=== PATIENT | female | born 1950 | race Caucasian/White ===

== ENCOUNTER → 2018-03-31 | Day surgery (SDC) | payer MEDICARE ==
[2018-03-31 11:37] VITALS: RESP 16; BMI 37.3
[2018-03-31 13:27] VITALS: BP 123/77; PULSE 51; TEMP 98.1
--- NOTE | 2018-03-31 15:35 | MM ---
EXAMINATION TYPE: MG stereo VAD BX LT DATE OF EXAM: 03/31/2018 COMPARISON: Mammogram 02/18/2018, 03/12/2018 from outside institution CLINICAL HISTORY: Abnormal mammogram TECHNIQUE: Stereotactic guided core biopsy of left breast. FINDINGS: The procedure of stereotactic guided core biopsy was explained to the patient. Benefits, alternatives, and risks were discussed. An informed consent was then obtained. Skin overlying a suitable path to the lesion was localized using stereotactic diabetes and the overlying skin was prepped and draped, lidocaine used for local anesthesia. A vacuum assisted biopsy gun was used to obtain multiple core samples. Clip was deployed marking the area of previously identified calcifications. Calcifications are noted in the specimen radiograph. The patient tolerated the procedure well without any immediate complication. The patient was kept in the radiology department for short stay after the procedure and then discharged home in stable condition. Targeted calcifications are identified in specimen mammogram. Post biopsy mammogram shows the clip to appear in satisfactory position relative to the targeted area of concern on the preprocedure images. IMPRESSION: SUCCESSFUL, UNCOMPLICATED STEREOTACTIC GUIDED CORE BIOPSY OF AREA OF CONCERN IN THE left BREAST, FULL PATHOLOGY RESULTS TO FOLLOW. 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 BACKGROUND FIBROCYSTIC CHANGES INCLUDING CYSTS AND FIBROSIS. Recommendation Follow up mammogram of the left breast in 6 months. CARROLL
== END ==
LOC: RADMAMWWP 11:24
PROVIDERS: ATTEND Family Medicine
DX: D24.2 Benign neoplasm of left breast (principal); N62 Hypertrophy of breast; R92.0 Mammographic microcalcification found on diagnostic imaging of breast; N60.32 Fibrosclerosis of left breast; N60.12 Diffuse cystic mastopathy of left breast; R92.8 Other abnormal and inconclusive findings on diagnostic imaging of breast
CPT/HCPCS: 88305; 19081; A4648; J2001

== ENCOUNTER → 2018-10-20 | Outpatient (CLI) | payer MEDICARE ==
--- NOTE | 2018-10-20 10:19 | MM ---
Reason for exam: additional evaluation requested from prior study. Last mammogram was performed 8 years and 3 months ago. History: Patient is postmenopausal. Benign MG stereo VAD BX LT of the left breast, March 31, 2018. Physical Findings: Nurse did not find any significant physical abnormalities on exam. MG 3D Diag Mammo W/Cad LT CC and MLO view(s) were taken of the left breast. Prior study comparison: March 31, 2018, mammogram, performed at [facility]. February 18, 2018, mammogram, performed at [facility]. September 20, 2016, mammogram, performed at [facility]. August 02, 2010, bilateral digital screening mammogram. The breast tissue is heterogeneously dense. This may lower the sensitivity of mammography. There are benign appearing scattered left breast calcifications. No suspicious abnormality. Left biopsy marker upper inner quadrant. These results were verbally communicated with the patient and result sheet given to the patient on 10/20/18. ASSESSMENT: Benign, BI-RAD 2 RECOMMENDATION: Routine screening mammogram of both breasts in 6 months. Back on schedule.
== END ==
LOC: RADMAMWWP 08:02
PROVIDERS: ATTEND Family Medicine
DX: D48.62 Neoplasm of uncertain behavior of left breast (principal); R92.2 Inconclusive mammogram
CPT/HCPCS: 77065; G0279; 77061

== ENCOUNTER 2019-07-16 19:18 | Observation (INO) | payer MEDICARE ==
[2019-07-16] MEDS ORDERED: Magnesium Replacement Protocol 1 EACH MISC MISCELLANE PRN (19:44)
[2019-07-16] MEDS ORDERED: MAGNESIUM SULFATE-D5W PMX 1 GM in DEXTROSE/WATER 1 100ML.BAG IVPB SCH (20:00)
--- NOTE | 2019-07-16 20:45 | ED ---
General Adult HPI - General Source: patient Mode of arrival: ambulatory Limitations: no limitations <Ashley Hurd - Last Filed: 07/16/19 22:01> <Axel Richardson - Last Filed: 07/16/19 22:15> - General Chief complaint: Chest Pain Stated complaint: chest pain, CHF, Time Seen by Provider: 07/16/19 19:26 - History of Present Illness Initial comments: 69-year-old female patient presents to the emergency department today as a transfer from [facility] for further evaluation of chest pain and palpitations. Patient states that over the last several weeks she has been having episodes of palpitations. States they've been increasing in frequency over the last week or 2. Patient states today she is having palpitations and with them she experienced chest tightness, throat pressure, and pressure over her left upper arm. Patient states she would become dizzy as well. States she did have an episode yesterday where she nearly passed out. Patient was in to see her physician who performed labs and then was sent to the emergency department [facility]. Patient states she does see Dr. Tran for cardiology. She denies any nausea, vomiting, abdominal pain, fever, or chills. Denies any cough or congestion. States that she does drink 3-4 cups of coffee per day. States she did stop drinking caffeine however that did not improve her symptoms so she started again. Denies any leg swelling or pain. Denies any recent travel. Patient denies any recent rash, diarrhea, constipation, back pain, numbness, tingling, hematuria, dysuria, urinary urgency, urinary frequency, or any other complaints. (Ashley Hurd) - Related Data Home Medications Medication Instructions Recorded Confirmed Aspirin [Adult Low Dose Aspirin EC] 81 mg PO DAILY 03/26/18 07/16/19 Cholecalciferol [Vitamin D3] 5,000 unit PO DAILY 03/26/18 07/16/19 Levothyroxine Sodium [Synthroid] 150 mcg PO DAILY 03/26/18 07/16/19 Metoprolol Tartrate [Lopressor] 25 mg PO BID 03/26/18 07/16/19 amLODIPine [Norvasc] 10 mg PO BID 03/26/18 07/16/19 metFORMIN HCL [Glucophage] 500 mg PO BID 03/26/18 07/16/19 Fluticasone Nasal [place] [Flonase 1 spray EA NOSTRIL DAILY PRN 07/16/19 07/16/19 Nasal [place]] Multivitamin [Multivitamins Adult 1 tab PO DAILY 07/16/19 07/16/19 Gummies] Allergies Allergy/AdvReac Type Severity Reaction Status Date / Time No Known Allergies Allergy Verified 07/16/19 22:06 Review of Systems ROS Other: All systems not noted in ROS Statement are negative. <Ashley Hurd - Last Filed: 07/16/19 22:01> ROS Other: All systems not noted in ROS Statement are negative. <Axel Richardson - Last Filed: 07/16/19 22:15> ROS Statement: Those systems with pertinent positive or pertinent negative responses have been documented in the HPI. Past Medical History Past Medical History: Diabetes Mellitus, Hypertension, Thyroid Disorder History of Any Multi-Drug Resistant Organisms: None Reported Past Surgical History: Cholecystectomy, Hysterectomy, Orthopedic Surgery Additional Past Surgical History / Comment(s): bilateral knee arthroscopy, right shoulder surgery Past Anesthesia/Blood Transfusion Reactions: Postoperative Nausea & Vomiting (PONV) Past Psychological History: No Psychological Hx Reported Smoking Status: Never smoker Past Alcohol Use History: Occasional Past Drug Use History: None Reported <Ashley Hurd - Last Filed: 07/16/19 22:01> General Exam Limitations: no limitations General appearance: alert, in no apparent distress, other (This is a well- developed, well-nourished elderly female patient in no acute distress. Vital signs upon presentation are temperature 98.1F, pulse 67, respirations 18, blood pressure 158/81, pulse ox 99% on room air.) Eye exam: Present: normal appearance, PERRL, EOMI. Absent: scleral icterus, conjunctival injection, periorbital swelling ENT exam: Present: normal exam, normal oropharynx, mucous membranes moist Respiratory exam: Present: normal lung sounds bilaterally. Absent: respiratory distress, wheezes, rales, rhonchi, stridor Cardiovascular Exam: Present: regular rate, normal rhythm, normal heart sounds. Absent: systolic murmur, diastolic murmur, rubs, gallop, clicks GI/Abdominal exam: Present: soft, normal bowel sounds. Absent: distended, tenderness, guarding, rebound, rigid Neurological exam: Present: alert, oriented X3, CN II-XII intact Psychiatric exam: Present: normal affect, normal mood Skin exam: Present: warm, dry, intact, normal color. Absent: rash <Ashley Hurd - Last Filed: 07/16/19 22:01> Course <Axel Richardson - Last Filed: 07/16/19 22:15> Vital Signs 07/16/19 07/16/19 07/16/19 19:20 19:47 20:04 Temperature 98.1 F Pulse Rate 67 62 Pulse Rate [ 60 Cuff Presser ] Respiratory 18 16 Rate Blood Pressure 158/81 127/68 O2 Sat by Pulse 99 95 Oximetry 07/16/19 21:34 Temperature Pulse Rate 63 Pulse Rate [ Cuff Presser ] Respiratory 16 Rate Blood Pressure 130/63 O2 Sat by Pulse 94 L Oximetry - Reevaluation(s) Reevaluation #1: 07/16/19 22:15 MILIEU COORDINATOR supervision: I proceeded to a [id number] evaluation the patient did discuss the findings with her also with Dr. Headley patient will be admitted with cardiology consultation. (Axel Richardson) EKG Findings - EKG Comments: EKG Findings:: EKG obtained at 1949 shows normal sinus rhythm with an incomplete left bundle branch block. Ventricular rate is 60, NM interval 182, QRS duration 114, QTC 438, QTC 438. No evidence of ST elevation or depression. <Ashley Hurd - Last Filed: 07/16/19 22:01> Medical Decision Making <Ashley Hurd - Last Filed: 07/16/19 22:01> - Medical Decision Making 69-year-old female patient presents to the emergency department today for evaluation of chest pain and palpitations. Physical examination is unremarkable. EKG showed normal sinus rhythm. Cardiac telemetry showed normal sinus rhythm on the emergency department. Reports from [facility] reviewed and revealed normal CBC, normal PT/INR, troponin less than 0.017, BNP is 713, magnesium 1.6, BUN of 19, remainder of CMP is normal. Chest x-ray was obtained and showed no acute cardiopulmonary disease or other acute findings. I did add repeat troponin and TSH. TSH was low, T4 pending. Patient did have magnesium replacement, 2 g, at [facility]. Did discuss findings and results with the patient. She'll be admitted for further evaluation by cardiology. (Ashley Hurd) - Lab Data Lab Results 07/16/19 07/16/19 Range/Units 19:45 19:45 Troponin I <0.012 (0.000-0.034) ng/mL TSH 0.431 L (0.465-4.680) mIU/L Disposition Decision to Admit Reason: Admit from EC Decision Date: 07/16/19 Decision Time: 21:58 <Ashley Hurd - Last Filed: 07/16/19 22:01> <Axel Richardson - Last Filed: 07/16/19 22:15> Clinical Impression: Chest pain, Palpitations Disposition: ADMITTED IP TO THIS [facility] Condition: Serious Referrals: Zachariah Reeves MD [Primary Care Provider] - 1-2 days
[2019-07-16] MEDS ORDERED: ONDANSETRON 4 MG/2 ML VIAL IVP PRN (21:53)
[2019-07-16] MEDS ORDERED: NALOXONE 0.4 MG/ML 1 ML VIAL IV PRN (21:53)
[2019-07-16] MEDS ORDERED: FLUTICASONE 50MCG/SPRAY NASAL 16GM EA NOSTRIL PRN (22:09)
[2019-07-16 22:35] LABS: T4, Free (Free Thyroxine) 1.71 ng/dL (0.78-2.19)
[2019-07-16 23:17] VITALS: RESP 18; BMI 36.8
[2019-07-16] MEDS: amLODIPine 10 MG TAB PO SCH (23:50)
[2019-07-16] MEDS: METOPROLOL TARTRATE 25 MG TAB PO SCH (23:51)
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
[2019-07-17] MEDS ORDERED: LEVOTHYROXINE 50 MCG TAB PO SCH (06:30)
[2019-07-17 07:18] LABS: Basophils # (A) 0.1 k/uL (0-0.2); Basophils % (A) 1 %; Eosinophils # (A) 0.6 k/uL (0-0.7); Eosinophils % (A) 8 %; HGB 13.7 gm/dL (11.4-16.0); Lymphocytes # (A) 1.5 k/uL (1.0-4.8); Lymphocytes % (A) 21 %; MCH 30.8 pg (25.0-35.0); MCHC 34.3 g/dL (31.0-37.0); MCV 89.8 fL (80.0-100.0); Mean Platelet Volume 7.6; Monocytes # (A) 0.4 k/uL (0-1.0); Monocytes % (A) 5 %; Neutrophils # (A) 4.6 k/uL (1.3-7.7); Neutrophils % (A) 64 %; Platelet Count 234 k/uL (150-450); RBC 4.45 m/uL (3.80-5.40); WBC 7.2 k/uL (3.8-10.6)
[2019-07-17] MEDS ORDERED: INSULIN ASPART (NovoLOG) 100 UNIT/ML VIAL SQ SCH (07:30)
[2019-07-17 07:48] LABS: Albumin 3.8 g/dL (3.5-5.0); Calcium 9.2 mg/dL (8.4-10.2); Magnesium 1.9 mg/dL (1.6-2.3); Potassium 4.1 mmol/L (3.5-5.1); Total Bilirubin 0.7 mg/dL (0.2-1.3); Total Protein 6.5 g/dL (6.3-8.2)
[2019-07-17] MEDS ORDERED: LOSARTAN 50 MG TAB PO SCH (09:00)
[2019-07-17] MEDS ORDERED: HEPARIN SODIUM,PORCINE 5,000 UNIT/ML 1 ML VIAL SQ SCH (09:00)
[2019-07-17] MEDS ORDERED: ASPIRIN 81 MG PO SCH (09:00)
--- NOTE | 2019-07-17 10:00 | P.CRDCN ---
History of Present Illness History of present illness: This is a pleasant 69-year-old female past medical history significant for hypertension, diabetes mellitus and hypothyroism. She denies prior history of coronary artery disease and follows with Dr. Tran in the office. We have been asked to see her in consultation for palpitations. She states for the previous few months she has been experiencing intermittent episodes of palpitat ions. She has been following with her PCP and undergoing an outpatient work-up. However yesterday her symptoms seem to be intensified. She felt her heart start racing and irregular fashion associated with tightness in her chest with radiation up into the base of neck and lightheadedness. This episode was very brief and after she stopped typical quality breath the symptoms subsided. She initially presented to [facility] and was transferred here for further evaluation. She has had no further symptoms of palpitations since arriving here. Telemetry tracings have been unremarkable and indicate persistent sinus mechanism. Orthostatics unremarkable. He denies chest pain, shortness of breath, dizziness, palpitations, nausea, vomiting or diaphoresis currently. Seen and examined resting comfortably in no acute distress. EKG reveals sinus mechanism, incomplete left bundle branch block, left axis deviation with a heart rate of 60. Laboratory data reviewed, cardiac enzymes negative 3, CBC unremarkable, sodium 142, potassium 4.1, creatinine 0.79, TSH 0.431, magnesium 1.9. Current cardiac medications include aspirin 81 mg daily, Lopressor 25 mg twice a day and amlodipine 10 mg daily. At the time of my exam: CONSTITUTIONAL: Denies fever. Denies chills. EYES: Denies blurred vision. Denies vision changes. Denies eye pain. EARS, NOSE, MOUTH & THROAT: Denies headache. Denies sore throat. Denies ear pain. CARDIOVASCULAR: Denies chest pain. Denies shortness of breath. Denies orthopnea. Denies PND. Denies palpitations. RESPIRATORY: Denies cough. GASTROINTESTINAL: Denies abdominal pain. Denies diarrhea. Denies constipation. Denies nausea. Denies vomiting. MUSCULOSKELETAL: Denies myalgias. INTEGUMENTARY: Denies pruitis. Denies rash. NEUROLOGIC: Denies numbness. Denies tingling. Denies weakness. PSYCHIATRIC: Denies anxiety. Denies depression. ENDOCRINE: Denies fatigue. Denies weight change. Denies polydipsia. Denies polyurina. GENITOURINARY: Denies burning, hematuria or urgency with micturation. HEMATOLOGIC: Denies history of anemia. Denies bleeding. Blood pressure 117/74 heart rate 59 afebrile maintaining oxygen saturation on room air. GENERAL: This is a 69-year-old female in no apparent distress at the time of my examination. HEENT: Head is atraumatic, normocephalic. Pupils are equal, round. Sclerae anicteric. Conjunctivae are clear. Mucous membranes of the mouth are moist. Neck is supple. There is no jugular venous distention. No carotid bruit is heard. LUNGS: Clear to auscultation no wheezes, rales or rhonchi. No chest wall tenderness is noted on palpation or with deep breathing. HEART: Regular rate and rhythm without murmurs, rubs or gallops. S1 and S2 heard. ABDOMEN: Soft, nontender. Bowel sounds are heard. No organomegaly noted. EXTREMITIES: No evidence of peripheral edema and no calf tenderness noted. VASCULAR: Radial and dorsalis pedis pulses palpated, no evidence of clubbing. NEUROLOGIC: Patient is awake, alert and oriented x3. ASSESSMENT Palpitations associated with dizziness and shortness of breath Hypertension Diabetes mellitus PLAN An acute coronary event has been ruled out. Obtain 2D echocardiogram and doppler study to assess cardiac structure and function. No evidence of arrhythmia throughout this hospitalization. Stable for discharge from a cardiac perspective. Appointment has been made in the office for outpatient stress test and event monitor for 30 days. Discussion had regarding taking a statin and she states she has tried a few and been intolerant. We will initiate on on lipitor and assess for tolerance. Thank you kindly for this consultation. Nurse Practitioner note has been reviewed, I agree with a documented findings and plan of care. Patient was seen and examined. Past Medical History Past Medical History: Diabetes Mellitus, Hypertension, Thyroid Disorder History of Any Multi-Drug Resistant Organisms: None Reported Past Surgical History: Cholecystectomy, Hysterectomy, Orthopedic Surgery Additional Past Surgical History / Comment(s): bilateral knee arthroscopy, right shoulder surgery Past Anesthesia/Blood Transfusion Reactions: Postoperative Nausea & Vomiting (PONV) Past Psychological History: No Psychological Hx Reported Smoking Status: Never smoker Past Alcohol Use History: Occasional Past Drug Use History: None Reported - Past Family History Mother History Unknown: Yes Family Medical History: No Reported History Father History Unknown: Yes Family Medical History: No Reported History Medications and Allergies Home Medications Medication Instructions Recorded Confirmed Type Aspirin [Adult Low Dose Aspirin EC] 81 mg PO DAILY 03/26/18 07/16/19 History Cholecalciferol [Vitamin D3] 5,000 unit PO DAILY 03/26/18 07/16/19 History Levothyroxine Sodium [Synthroid] 150 mcg PO DAILY 03/26/18 07/16/19 History Metoprolol Tartrate [Lopressor] 25 mg PO BID 03/26/18 07/16/19 History amLODIPine [Norvasc] 10 mg PO BID 03/26/18 07/16/19 History metFORMIN HCL [Glucophage] 500 mg PO BID 03/26/18 07/16/19 History Fluticasone Nasal [place] [Flonase 1 spray EA NOSTRIL DAILY PRN 07/16/19 07/16/19 History Nasal [place]] Multivitamin [Multivitamins Adult 1 tab PO DAILY 07/16/19 07/16/19 History Gummies] Allergies Allergy/AdvReac Type Severity Reaction Status Date / Time No Known Allergies Allergy Verified 07/16/19 22:06 Physical Exam Vitals: Vital Signs Temp Pulse Pulse Pulse Pulse Pulse Pulse 07/17/19 07:00 97.7 F 59 L 07/17/19 04:00 97.9 F 58 L 66 72 65 07/17/19 00:00 65 07/16/19 22:45 97.7 F 65 07/16/19 21:34 63 07/16/19 20:04 62 07/16/19 19:47 60 07/16/19 19:20 98.1 F 67 Resp BP BP BP BP BP Pulse Ox 07/17/19 07:00 18 117/74 97 07/17/19 04:00 18 128/81 121/78 144/82 96 07/17/19 00:00 18 07/16/19 22:45 18 158/91 95 07/16/19 21:34 16 130/63 94 L 07/16/19 20:04 16 127/68 95 07/16/19 19:47 07/16/19 19:20 18 158/81 99 Intake and Output 07/16/19 07/17/19 07/17/19 22:59 06:59 14:59 Other: # Voids 1 Weight 106.594 kg Results 07/17/19 07:05 07/17/19 07:05 Cardiac Enzymes 07/16/19 07/17/19 Range/Units 19:45 01:27 Troponin I <0.012 <0.012 (0.000-0.034) ng/mL CBC 07/17/19 Range/Units 07:05 WBC 7.2 (3.8-10.6) k/uL RBC 4.45 (3.80-5.40) m/uL Hgb 13.7 (11.4-16.0) gm/dL Hct 40.0 (34.0-46.0) % Plt Count 234 (150-450) k/uL Current Medications Generic Name Dose Route Start Last Admin Trade Name Freq PRN Reason Stop Dose Admin Amlodipine Besylate 10 mg 07/16/19 22:15 07/16/19 23:50 Norvasc PO 10 mg BID BAILEY Administration Aspirin 81 mg 07/17/19 09:00 Aspirin PO DAILY [facility] Fluticasone Propionate 1 spray 07/16/19 22:09 Flonase Nasal [place] EA NOSTRIL DAILY PRN Nasal Congestion Heparin Sodium (Porcine) 5,000 unit 07/17/19 09:00 Heparin SQ TID [facility] Insulin Aspart 0 unit 07/17/19 07:30 Novolog SQ ACHS [facility] Protocol Levothyroxine Sodium 150 mcg 07/17/19 06:30 07/17/19 06:19 Synthroid PO 150 mcg DAILY@0630 [facility] Administration Losartan Potassium 50 mg 07/17/19 09:00 Cozaar PO DAILY [facility] Metoprolol Tartrate 25 mg 07/16/19 22:15 07/16/19 23:51 Lopressor PO 25 mg BID [facility] Administration Naloxone HCl 0.2 mg 07/16/19 21:53 Narcan IV Q2M PRN Opioid Reversal Ondansetron HCl 4 mg 07/16/19 21:53 Zofran IVP Q8HR PRN Nausea And Vomiting Intake and Output 07/16/19 07/17/19 07/17/19 22:59 06:59 14:59 Other: # Voids 1 Weight 106.594 kg 07/17/19 07:05
[2019-07-17] MEDS: METOPROLOL TARTRATE 25 MG TAB PO SCH (10:50)
[2019-07-17] MEDS: amLODIPine 10 MG TAB PO SCH (10:50)
[2019-07-17 11:22] VITALS: BP 133/81; PULSE 66; TEMP 97.6
[2019-07-17 11:37] LABS: Glucose,Whole Blood 114 mg/dL (75-99)
--- NOTE | 2019-07-17 14:44 | P.DS ---
Providers Date of admission: 07/16/19 22:15 Expected date of discharge: 07/17/19 Attending physician: Karla Fallon MD Consults: 07/16/19 21:55 Consult Physician Routine Consulting Provider: [facility] Consult Reason/Comments: Chest pain; Palpitations Do you want consulting provider notified?: Yes Primary care physician: Zachariah Leandro - Discharge Diagnosis(es) (1) Palpitations Current Visit: Yes Status: Acute (2) Dizziness Current Visit: Yes Status: Acute (3) Essential hypertension Current Visit: Yes Status: Acute (4) Type 2 diabetes mellitus Current Visit: Yes Status: Acute Hospital Course: The patient is a pleasant 69-year-old female with a past focal history of essential hypertension, type 2 diabetes and hypothyroidism with a known history of CAD that presented to the ER with chief complaint of palpitations and dizziness in observation and monitored on telemetry. Workup with EKG revealed sinus mechanism with incomplete left bundle-branch block. The patient had no evidence of any arrhythmia throughout the hospitalization, 2-D echocardiogram was ordered that apparently showed preserved LVEF without any significant valvular abnormalities patient was subsequently discharged home after negative workup and instructed to follow-up with her PCP and to keep her follow-up appointment with Dr. Sandoval. This discharge process took approximately 30 minutes. Focused exam Cardiovascular: Regular rate and rhythm no murmurs or gallops Patient Condition at Discharge: Good Plan - Discharge Summary Discharge Rx Participant: No New Discharge Prescriptions: Continue amLODIPine [Norvasc] 10 mg PO BID Metoprolol Tartrate [Lopressor] 25 mg PO BID metFORMIN HCL [Glucophage] 500 mg PO BID Cholecalciferol [Vitamin D3 (25 Mcg = 1000 Iu)] 5,000 unit PO DAILY Levothyroxine Sodium [Synthroid] 150 mcg PO DAILY Aspirin [Adult Low Dose Aspirin EC] 81 mg PO DAILY Fluticasone Nasal Corbin [Flonase Nasal Corbin] 1 spray EA NOSTRIL DAILY PRN PRN Reason: Nasal Congestion Multivitamin [Multivitamins Adult Gummies] 1 tab PO DAILY Discharge Medication List Aspirin [Adult Low Dose Aspirin EC] 81 mg PO DAILY 03/26/18 [History] Cholecalciferol [Vitamin D3 (25 Mcg = 1000 Iu)] 5,000 unit PO DAILY 03/26/18 [History] Levothyroxine Sodium [Synthroid] 150 mcg PO DAILY 05/09/18 [History] Metoprolol Tartrate [Lopressor] 25 mg PO BID 03/26/18 [History] amLODIPine [Norvasc] 10 mg PO BID 03/26/18 [History] metFORMIN HCL [Glucophage] 500 mg PO BID 03/26/18 [History] Fluticasone Nasal [place]bin [Flonase Nasal Corbin] 1 spray EA NOSTRIL DAILY PRN 07/16/19 [History] Multivitamin [Multivitamins Adult Gummies] 1 tab PO DAILY 07/16/19 [History] Follow up Appointment(s)/Referral(s): Zachariah Reeves MD [Primary Care Provider] - 1-2 days Wayne Sandoval MD [STAFF PHYSICIAN] - 09/15/19 2:15 pm (SaturdayAug 03 at 0715 stress test - Lexiscan. 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 Appointment with Dr. Tran Sep 15 at 2:15 pm.)
[2019-07-17 19:15] LABS: Hemoglobin A1C 5.8 % (4.0-6.0)
--- NOTE | 2019-07-18 07:12 | ECHOF ---
Referral Reason:cp palpitations MEASUREMENTS -------- HEIGHT: 170.2 cm WEIGHT: 106.6 kg BP: 117/74 RVIDd: 2.7 cm (< 3.3) IVSd: 1.6 cm (0.6 - 1.1) LVIDd: 3.8 cm (3.9 - 5.3) LVPWd: 1.3 cm (0.6 - 1.1) IVSs: 1.7 cm LVIDs: 2.7 cm LVPWs: 1.8 cm LA Diam: 3.0 cm (2.7 - 3.8) LAESV Index (A-L): 23.13 ml/m Ao Diam: 3.6 cm (2.0 - 3.7) AV Cusp: 2.2 cm (1.5 - 2.6) MV EXCURSION: 14.230 mm (> 18.000) MV EF SLOPE: 42 mm/s (70 - 150) EPSS: 0.5 cm MV E Manuelito: 1.07 m/s MV DecT: 263 ms MV A Manuelito: 1.02 m/s MV E/A Ratio: 1.05 AR PHT: 863 ms FINDINGS -------- Sinus rhythm. This was a technically adequate study. The left ventricular size is normal. There is moderate concentric left ventricular hypertrophy. O verall left ventricular systolic function is normal with, an EF between 60 - 65 %. The right ventricle is normal in size. Normal LA size by volume 22+/-6 ml/m2. The right atrium is normal in size. Interatrial and interventricular septum intact. There is mild aortic regurgitation. There is trace mitral regurgitation. The tricuspid valve appears structurally normal. There is no pulmonic regurgitation present. The aortic root size is normal. Normal inferior vena cava with normal inspiratory collapse consistent with estimated right atrial pre ssure of 5 mmHg. There is no pericardial effusion. CONCLUSIONS -------- 1. Sinus rhythm. 2. This was a technically adequate study. 3. The left ventricular size is normal. 4. There is moderate concentric left ventricular hypertrophy. 5. Overall left ventricular systolic function is normal with, an EF between 60 - 65 %. 6. The right ventricle is normal in size. 7. Normal LA size by volume 22+/-6 ml/m2. 8. The right atrium is normal in size. 9. Interatrial and interventricular septum intact. 10. There is mild aortic regurgitation. 11. There is trace mitral regurgitation. 12. The tricuspid valve appears structurally normal. 13. There is no pulmonic regurgitation present. 14. The aortic root size is normal. 15. Normal inferior vena cava with normal inspiratory collapse consistent with estimated right atrial pressure of 5 mmHg. 16. There is no pericardial effusion. DAY SPA MANAGER: Isabel Hernandez RDCS
== END 2019-07-17 16:30 | disposition home or self-care (01) ==
LOC: EC 19:18 → 1SOBS 22:15 → UNDODISOB 07-17 15:26
PROVIDERS: ADMIT Internal Medicine; ATTEND Internal Medicine
DX: R07.89 Other chest pain (principal); R00.2 Palpitations; I44.7 Left bundle-branch block, unspecified; R11.0 Nausea; I10 Essential (primary) hypertension; R42 Dizziness and giddiness; R55 Syncope and collapse; E11.9 Type 2 diabetes mellitus without complications; E03.9 Hypothyroidism, unspecified; Z79.82 Long term (current) use of aspirin; Z79.890 Hormone replacement therapy; Z79.84 Long term (current) use of oral hypoglycemic drugs; Z79.899 Other long term (current) drug therapy; Z90.49 Acquired absence of other specified parts of digestive tract; Z90.710 Acquired absence of both cervix and uterus
CPT/HCPCS: 96372; 99285; 36415; 93005; 93306; 84439; 80053; 84443; 83735; 84484 ×2; 85025; 83036; G0378 ×2; J1644

== ENCOUNTER → 2019-12-01 | Outpatient (CLI) | payer MEDICARE ==
--- NOTE | 2019-12-02 12:02 | MM ---
Reason for exam: screening (asymptomatic). Last mammogram was performed 1 year and 1 month ago. History: Patient is postmenopausal. Benign MG stereo VAD BX LT of the left breast, March 31, 2018. Physical Findings: A clinical breast exam by your physician is recommended on an annual basis and results should be correlated with mammographic findings. MG 3D Screening Mammo W/Cad Bilateral CC and MLO view(s) were taken. XCCL view(s) were taken of the left breast. Prior study comparison: October 20, 2018, left breast MG 3d diag mammo w/cad LT. March 31, 2018, mammogram, performed at [facility]. The breast tissue is heterogeneously dense. This may lower the sensitivity of mammography. Finding: There are typically benign vascular, round, grouped, linear and diffuse/scattered calcifications in both breasts. Previous mammotome biopsy in the left breast. There is a chronic nodularity in the right breast. There is no discrete abnormality. ASSESSMENT: Benign, BI-RAD 2 RECOMMENDATION: Routine screening mammogram of both breasts in 1 year.
== END | disposition home or self-care (01) ==
LOC: RADMAMWWP 09:49
PROVIDERS: ATTEND Family Medicine
DX: Z12.31 Encounter for screening mammogram for malignant neoplasm of breast (principal)
CPT/HCPCS: 77063; 77067

== ENCOUNTER → 2022-03-21 | Outpatient (CLI) | payer MEDICARE ==
--- NOTE | 2022-03-21 10:36 | MR ---
EXAMINATION TYPE: MR brain and iac wo/w con DATE OF EXAM: 03/21/2022 COMPARISON: HISTORY: Acoustic nerve disorder, dizziness, stroke TECHNIQUE: Multiplanar, multisequence images of the brain and brainstem is performed without and with IV contras t, utilizing 9 mL intravenous Gadavist . FINDINGS: Diffusion weighted images demonstrate no evidence of a recent infarct or other diffusion ab normality. There is generalized mild to moderate degenerative change. Areas of abnormal signal involv ing the basal ganglia and enrique suggestive of remote infarct. There is confluent and numerous bilateral focal areas of abnormal signal seen scattered throughout th e white matter compatible was severe nonspecific white matter changes. Most likely on the basis of re mote white matter microvascular ischemia. Partially empty sella turcica. The craniocervical junction appears within normal limits. Post contrast images demonstrate no abnormal enhancement. No evidence of cerebellopontine angle mass or acoustic schwannoma. The dural venous sinuses appear patent. Changes of chronic sinusitis are noted the globes are intact. Minimal signal seen in the mastoid air cells. IMPRESSION: 1. No evidence of cerebellopontine angle mass or acoustic schwannoma. 2. Degenerative change with diffuse white matter changes most typical of extensive remote white matte r ischemic change.
== END | disposition home or self-care (01) ==
LOC: RADMRIMAIN 08:53
PROVIDERS: ATTEND Otolaryngology
DX: I67.82 Cerebral ischemia (principal); G31.9 Degenerative disease of nervous system, unspecified
CPT/HCPCS: 70553; A9585

== ENCOUNTER → 2023-10-11 | Outpatient (CLI) | payer MEDICARE ==
[2023-10-11 12:09] LABS: Blood Urea Nitrogen 25.7 mg/dL (9.0-27.0); Calcium 10.1 mg/dL (8.7-10.3); Carbon Dioxide 25.2 mmol/L (21.6-31.8); Chloride 104 mmol/L (96-109); Glucose 100 mg/dL (70-110); Potassium 4.3 mmol/L (3.5-5.5); Sodium 140 mmol/L (135-145)
== END | disposition home or self-care (01) ==
LOC: LABWHC1 08:15
PROVIDERS: ATTEND Internal Medicine Interventional Cardiology
DX: I10 Essential (primary) hypertension (principal)
CPT/HCPCS: 36415; 80048